=== PATIENT | female | born 1960 | race African-American/Black ===

== ENCOUNTER 2016-11-13 16:13 | Emergency (ER) ==
--- NOTE | 2016-11-13 16:47 | PROVIDER DOCUMENTATION ---
HPI-Headache - General Source: patient - History of Present Illness-Headache Headache Location: reports: frontal Quality of Pain: reports: aching Severity: reports: moderate Onset/Duration: reports: other (3 wks) Timing: reports: still present Headache Context: reports: nothing Any recent trauma/injury?: reports: none Headache severity at the maximum: severe Headache Exacerbated by:: reports: nothing Similar Symptoms Previously?: No Recently seen or treated by another doctor?: No <Jitendra Ward - Last Filed: 11/13/16 16:43> <Susu Nice - Last Filed: 11/13/16 18:13> - General Chief Complaint: Headache Stated Complaint: HEADACHE Time Seen by Provider: 11/13/16 16:28 Allergies/Adverse Reactions: Patient Allergies Allergy/AdvReac Type Severity Reaction Status Date / Time No Known Allergies Allergy Verified 11/13/16 16:18 Home Medications: Home Medication List Medication Instructions Recorded Confirmed Last Taken Type Losartan/Hctz [Hyzaar 100/12.5 mg 1 each PO DAILY #30 tablet 11/13/16 Unknown Rx Tab] - History of Present Illness-Headache Nature of Presenting Problem: Pt is a 56 yof that complains of a new onset of LAL x 3 weeks behind her eyes and frontal region of head. 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 States No blood pressure medication since March and reports been having anxiety worrying about her blood pressure and states she is feeling a fluttering in her chest. Denies f ,v,n,c,sob,blurry vision,vision loss,slurry speech,facial drooping. (Jitendra Ward) Review of Systems - Adult - REVIEW OF SYSTEMS - ADULT Constitutional: denies: chills, fever, fatique Eyes: reports: no symptoms reported Ears, Nose, Mouth & Throat: denies: ear pain, sinus problem, throat pain Cardiovascular: reports: palpitations. denies: chest pain, irregular heart rate , orthopnea, syncope Respiratory: denies: cough, shortness of breath, wheezing Gastrointestinal: reports: no symptoms reported Genitourinary: reports: no symptoms reported Musculoskeletal: reports: no symptoms reported Integumentary: reports: no symptoms reported Neurological: reports: headache/migraines. denies: loss of balance, numbness, paresthesia Psychiatric: reports: anxiety. denies: anti-depressant use, depression, emotional problems Endocrine: reports: no symptoms reported Hematologic/Lymphatic: reports: no symptoms reported Allergic/Immunologic: reports: no symptoms reported All Other Systems: Reviewed and Negative <EdJitendra - Last Filed: 11/13/16 16:43> Past History - Adult - PAST MEDICAL HISTORY-ADULT Review of Records: reports: Nursing Assessment Review Major Childhood Illnesses: reports: denies history Cardiovascular: reports: HTN - PRIOR SURGERIES/PROCEDURES Surgical/Procedure History: reports: hysterectomy - IMMUNIZATION STATUS Childhood Immunizations: See Nurse Assessment Flu Vaccine: See Nurse Assessment - FAMILY HISTORY Family History: reviewed, not pertinent - SOCIAL HISTORY Smoking: denies Substance Use: none/never <EdJitendra - Last Filed: 11/13/16 16:43> Physical Exam- Neurological - Physical Exam-Neuro General Appearance: appears well, alert, no apparent distress Eye Exam: bilateral eye: PERRL, EOMI HENMT: normocephalic/atraumatic, moist mucous membranes, normal ENT inspection, TMs normal, pharynx normal Neck: non-tender, full range of motion, supple Respiratory: lungs clear, normal breath sounds Cardiovascular: normal peripheral pulses, regular rate, rhythm Abdominal Exam: non tender, soft Extremity: normal range of motion, normal gait, normal capillary refill human resources technician Exam: normal hearing, normal speech, PERRL Coordination/Gait: normal finger to nose, normal gait Motor/Sensory: no motor deficit, no sensory deficit Neurologic: grossly normal, no motor/sensory deficits Integumentary: normal color, normal turgor, warm/dry Psych/Mental Status: normal mood/affect, oriented x 3 - Glascow Coma Scale Best Eye Response: (4) open spontaneously Best Verbal Response: (5) oriented Best Motor Response: (6) obeys commands Total Glascow Score: 15 <BagdadKanu dahldolores Alleny - Last Filed: 11/13/16 18:13> Progress - EKG 1 Time of EKG reading by physician:: 16:37 EKG Read and Signed by:: Jonnie Macdonald EKG Interpretation (*Must complete 3 of following elements*): Abnormal Rate: 61 Rhythm: sinus with pac with aberrant conduction [place]: normal QRS: normal <WardJitendra - Last Filed: 11/13/16 16:43> - CT/MRI 1 CT Study: Head Impression: Normal CT Results: no hemorrhage, no mass <Susu Nice - Last Filed: 11/13/16 18:13> - PLAN OF CARE/RESULTS Progress/Plan/Lab Results: Orders Category Date Time Status Cardiac Monitoring DIRECTED Care 11/13/16 16:38 Active HEAD W/O CONTRAST [CT] Stat Exams 11/13/16 16:38 Ordered CBC WITH DIFF [HEME] Stat Lab 11/13/16 16:37 Ordered CK PROFILE [SP CHEM] Stat Lab 11/13/16 16:38 Ordered CMP [COMPREHENSIVE METABOLIC PANEL] [CHEM] Stat Lab 11/13/16 16:37 Ordered Tylenol [ACETAMINOPHEN] [TDM] Stat Lab 11/13/16 16:39 Ordered UA [URINALYSIS PL W/POSS RFLX CULT] [URINALYSIS] Stat Lab 11/13/16 16:38 Uncollected EKG [EKG] Stat Ther 11/13/16 16:37 Ordered Vital Signs - 24 hr 11/13/16 16:18 Temperature 99.0 F Pulse Rate 68 Respiratory 18 Rate Blood Pressure 178/101 O2 Sat by Pulse 100 Oximetry (Jitendra Ward) Discussed patient's care with Dr. Macdonald verbalized to refill patient's b/p medication for 30 days, (Susu Nice) Departure <Jitendra Ward - Last Filed: 11/13/16 16:43> - Departure Time of Disposition Order: 18:09 Certified Medical Emergency: Emergent <Susu Nice - Last Filed: 11/13/16 18:13> - Departure DIAGNOSIS: Fluttering heart High blood pressure Qualifiers: Hypertension type: unspecified secondary hypertension Qualified Code(s): I15.9 - Secondary hypertension, unspecified; I15 - Secondary hypertension Headache Qualifiers: Headache type: unspecified Headache chronicity pattern: acute headache Intractability: not intractable Qualified Code(s): R51 - Headache Disposition: HOME 01 Condition: Stable Additional Instructions: Medication as directed Call your PCP for follow-up ED Follow Up Instructions: You have been treated by a care provider in the Emergency Department. These instructions are being provided to you so you can have an understanding of how to care for yourself upon discharge. Upon discharge from the Emergency Department, you are responsible for making arrangements for follow-up care by a physician of your choice. Take all prescribed medications as directed. Return to the Emergency Department immediately for any new or worsening symptoms. You may call the Physician Referral phone number at [phone] to obtain a list of Physicians who are taking new patients. Prescriptions: Losartan/Hctz [Hyzaar 100/12.5 mg Tab] 1 each PO DAILY #30 tablet Referrals: Cassy Parra MD [STAFF PHYSICIAN] - None,PCP [Primary Care Provider] - Forms: Return to School/Parent Work Instructions: Migraine Headache, [id number] Attestation - Scribe Verification/Attestation Scribe:: Jitendra Ward Acting as Scribe for:: Susu Nice Scribe documention review:: This chart was documented by a scribe and accurately reflects the service the provider performed and the decisions made by the provider. - Physician/ JOANN Attestation Patient care was provided by Advanced Practice Provider:: Yes Advanced Practice Provider:: Susu Nice Advanced Practice Provider documentation review:: The Mid-level provider documentation, treatment plan and medical decision making was reviewed by the physician who agrees with all treatment and medical decision making by the MLP. <Jitendra Ward - Last Filed: 11/13/16 16:43> Physician Attestation
[2016-11-13 16:56] LABS: URINE SOURCE CLEAN CATCH
[2016-11-13 17:08] LABS: BILIRUBIN URINE NEGATIVE (NEGATIVE); BLOOD URINE NEGATIVE (NEGATIVE); CLARITY CLEAR (CLEAR); COLOR YELLOW; GLUCOSE URINE NEGATIVE (NEGATIVE); LEUKOCYTES URINE TRACE (NEGATIVE); NITRITE URINE NEGATIVE (NEGATIVE); PROTEIN URINE NEGATIVE (NEGATIVE); SP GRAVITY URINE 1.015; UROBILINOGEN URINE NORMAL
[2016-11-13 17:14] LABS: MANUAL DIFF NEEDED? NO
[2016-11-13 17:16] LABS: BASO% 0.4 % (0.0-0.8); EOS# 0.06 X1000 (0.0-0.7); EOS% 1.1 % (0.0-10.0); HEMATOCRIT 37.8 % (37.0-47.0); HEMOGLOBIN 12.2 g/dL (12.0-16.0); LYMPH# 2.18 X1000 (1.2-3.4); LYMPH% 40.8 % (20.5-51.1); MCH 26.6 PG (27-31); MCHC 32.3 g/dL (33-37); MCV 82.5 FL (81-99); MONO# 0.42 X1000 (0.11-0.59); MONO% 7.9 % (1.7-9.3); MPV 9.7 FL (7.4-10.4); NEUT% 49.8 % (42.2-75.2); PLT 259 X1000 (130-400); RBC 4.58 XMIL (4.2-5.4)
[2016-11-13 17:19] LABS: URINE CAST NONE SEEN /LPF; URINE CRYSTAL NONE SEEN /HPF; URINE CULTURE PL NEEDED? YES; URINE EPITHELIAL CELLS <10 /HPF (<10); URINE WBC <10 /HPF (<10)
[2016-11-13 17:42] LABS: AGAP 12; ALBUMIN 4.2 g/dL (3.5-5.0); ALKALINE PHOSPHATASE 108 U/L (32-104); BUN 10 mg/dL (8-22); CALCIUM 9.3 mg/dL (8.8-10.2); CHLORIDE 104 mmol/L (98-107); COSMO 278; GOT 19 U/L (10-30); GPT 11 U/L (10-36); POTASSIUM 3.3 mmol/L (3.5-5.1); SODIUM 140 mmol/L (136-145); TCO2 25 mmol/L (25-35); TOTAL PROTEIN 7.5 g/dL (6.3-8.3)
--- NOTE | 2016-11-13 17:51 | EKG Report ---
Test Performed on : 11/13/2016 4:37:54 PM Test Reason : chest fluttering Blood Pressure : / mmHG Vent. Rate : 061 BPM Atrial Rate : 061 BPM P-R Int : 158 ms QRS Dur : 092 ms QT Int : 450 ms P-R-T Axes : 056 045 046 degrees QTc Int : 453 ms Sinus rhythm. with premature atrial complexes. with aberrant conduction. Otherwise normal ECG No previous ECGs available Unconfirmed Result
[2016-11-13 18:03] LABS: CK INDEX 1.3 (0.0-2.5); CK-MB 2.74 ng/mL (0.0-5.0)
[2016-11-13] MEDS ORDERED: TYLENOL PO ONE (18:10)
[2016-11-13 18:38] VITALS: BP 177/78
--- NOTE | 2016-11-14 08:55 | Diag Imaging Result Document ---
PROCEDURE NAME: HEAD W/O CONTRAST - 11/13/[address]: A CT dose reduction protocol was used. COMPARISON: None. FINDINGS: The ventricles and sulci are normal in size and contour. There is no mass, hemorrhage, or evidence of acute ischemia. The bony calvaria is intact. The visualized paranasal sinuses and mastoid air cells are clear. IMPRESSION: Negative head [facility]
== END 2016-11-13 18:38 | disposition home or self-care (01) ==
LOC: P.ED 16:13
DX: I49.8 Other specified cardiac arrhythmias (principal); I15.9 Secondary hypertension, unspecified; R51 Headache; R00.2 Palpitations; F41.9 Anxiety disorder, unspecified; I10 Essential (primary) hypertension; R94.31 Abnormal electrocardiogram [ECG] [EKG]
CPT/HCPCS: 70450; 80053; 81001; 82550; 82553; 85025; 87088; 93005; G0480; 80324